=== PATIENT | female | born 1980 | race Caucasian/White ===

== ENCOUNTER 2017-05-27 15:51 | Emergency (ER) | payer OTHER ==
[~2017-05-27] VITALS: Ht 170.2 cm; Wt 77.5 kg
[~2017-05-27 15:51] MED LIST: ADVAIR 100/501 DISK; ADVAIR 100/501 DISK IH; ADVAIR 250/501 DISK IH; ALBUTEROL17 GM IH; AZITHROMYCIN250 MG1 PO; BENTYL10 MG PO; Bactrim,Septra DS 80 PO; CHANTIX1 MG PO; CIPRO500 MG PO; CITRATE OF MAG296 ML PO; DOXYCYCLINE HY100 M3 PO; ENDOCET 5-3251 EACH PO; HYCODAN SYRUP480 ML PO; METFORMIN HCL500 MG PO; METRONIDAZOLE500 MG PO; NAPROXEN500 MG PO; NEXIUM40 MG PO; PANTOPRAZOLE SO40 MG PO; PERCOCET 5/31 TABLET PO; PREDNISONE20 MG PO; PREDNISONE50 MG PO; PRILOSEC OTC20 MG PO; PROMETHAZINE HC25 M1 PO; PROVENTIL HFA6.7 GM IH; PROVENTIL,2.5 MG/3 M IH; PROVENTIL17 G1 IH; TESSALON200 MG PO; TYLENOL REGULA325 MG PO; ULTRAM50 MG PO; ZITHROMAX250 MG PO; ZOFRAN8 MG PO; keflex
[2017-05-27 16:36] LABS: HEMATOCRIT 38.7 % (36.0-46.0); MCHC 34.1 G/DL (30.0-36.0); MEAN PLAT.VOLUME 8.9 uM^3 (9.5-12.4); PLATELET COUNT 236 K/uL (156-360); RBC DIS.WIDTH-CV 12.5 % (11.8-14.6); RBC DIS.WIDTH-SD 40.5 % (39-53); WHITE BLOOD COUNT 7.8 K/uL (4.1-10.2)
[2017-05-27 16:45] LABS: CHLORIDE 105 mEq/L (99-109); POTASSIUM 3.3 mEq/L (3.7-5.4); SODIUM 138 mEq/L (136-147)
[2017-05-27 16:47] LABS: GLUCOSE 107 mg/dL (70-99)
[2017-05-27 16:48] LABS: ANION GAP 9 MEQ/L (2-14)
[2017-05-27 16:49] LABS: TOTAL BILIRUBIN 0.2 mg/dL (0.0-1.0)
[2017-05-27 16:50] LABS: ALKALINE PHOSPHATASE 64 IU/L (3-129)
[2017-05-27 16:51] LABS: GFR ESTIMATE (CALCULATED) > 59 mL/min/
[2017-05-27 16:52] LABS: ADD MIUA? YES; BILIRUBIN NEGATIVE; BLOOD NEGATIVE; COLOR YELLOW ((YELLOW)); GLUCOSE (STRIP) NEGATIVE; KETONES 5; LEUKOCYTES NEGATIVE; NITRITE NEGATIVE; PROTEIN (STRIP) 30; SPECIFIC GRAVITY 1.023 (1.000-1.030)
[2017-05-27 16:52] LABS: UREA NITROGEN (BUN) 8 mg/dL (9-23)
[2017-05-27 16:54] LABS: LIPASE 33 U/L (1.0-51.0)
[2017-05-27 16:59] LABS: QUANTITATIVE HCG < 4.0 MIU/ML
[2017-05-27 17:01] LABS: BACTERIA NONE SEEN /HPF; EPITHELIAL CELLS 1+ /HPF; MUCUS TRACE /LPF; RED BLOOD CELLS 0-5 /HPF (0-5); UCUL ADDED? NO; WHITE BLOOD CELLS 0-5 /HPF (0-5)
[2017-05-27] MEDS ORDERED: BENTYL10 MG PO (19:19)
[2017-05-27] MEDS ORDERED: ZOFRAN ODT4 MG PO (19:19)
[2017-05-27 19:28] VITALS: BP 100/58
== END 2017-05-27 19:26 | disposition home or self-care (01) ==
LOC: EME 15:51
PROVIDERS: Physician Assistant Medical
DX: K52.9 Noninfective gastroenteritis and colitis, unspecified (principal); F17.200 Nicotine dependence, unspecified, uncomplicated; K21.9 Gastro-esophageal reflux disease without esophagitis; E11.9 Type 2 diabetes mellitus without complications; J44.9 Chronic obstructive pulmonary disease, unspecified
CPT/HCPCS: 74177; 80053; 81003; 83690; 84702; 85027; 99281; 99284; J1885; J2405; J7030